=== PATIENT | male | born 1990 | race African-American/Black ===

== ENCOUNTER 2023-11-18 20:26 | Inpatient (IN) | payer MEDICAID ==
[~2023-11-18] VITALS: Ht 167.6 cm; Wt 121.0 kg
[2023-11-18] MEDS ORDERED: HALOPERIDOL 5 MG TABLET PO PRN (21:30)
[2023-11-18] MEDS ORDERED: ZOLPIDEM TARTRATE 10 MG TABLET PO PRN (21:30)
[2023-11-18 22:30] VITALS: BP 153/82; PULSE 89; RESP 18; TEMP 97.7; O2SAT 97
[2023-11-18] MEDS: PNEUMOCOCCAL VACCINE POLYVALENT 0.5 ML SYRINGE [PPSV23] IM. ONE (22:30)
[2023-11-19 08:37] VITALS: BP 149/80; PULSE 90; RESP 17; TEMP 98.3; O2SAT 99
[2023-11-19 08:48] LABS: BASOPHILS % (AUTO) 0.8 % (0.0-2.0); EOSINOPHILS % (AUTO) 2.7 % (1.0-6.0); HEMATOCRIT 40.9 % (41-53); HEMOGLOBIN 13.6 g/dL (13.5-17.5); LYMPHOCYTES # (AUTO) 2.1 K/uL (1.0-4.8); LYMPHOCYTES % (AUTO) 37.4 % (22.0-44.0); MEAN CORPUSCULAR HEMOGLOBIN 29.6 pg (26.0-34.0); MEAN CORPUSCULAR HGB CONC 33.2 G/dL (31.0-37.0); MEAN CORPUSCULAR VOLUME 89 fL (80-100); MONOCYTES # (AUTO) 0.4 K/uL (0.1-1.0); MONOCYTES % (AUTO) 7.4 % (2.0-9.0); NEUTROPHILS # (AUTO) 2.9 K/uL (1.8-7.7); NEUTROPHILS % (AUTO) 51.7 % (40.0-70.0); PLATELET COUNT (AUTO) 290 K/uL (150-450); RED BLOOD CELL COUNT(AUTO) 4.59 MIL/uL (4.50-5.90); RED CELL DISTRIBUTION WIDTH 14.7 % (11.5-14.5); WHITE BLOOD COUNT (AUTO) 5.5 K/uL (4.5-11.0)
[2023-11-19 09:03] LABS: HEMOGLOBIN A1C 5.8 % (3.8-5.6)
[2023-11-19 09:18] LABS: ALANINE AMINOTRANSFERASE 23 U/L (12-78); ALBUMIN 3.5 g/dL (3.4-5.0); ALKALINE PHOSPHATASE 109 U/L (46-116); ANION GAP 12 mmol/L (8-16); ASPARTATE AMINOTRANSFERASE 27 U/L (15-37); BILIRUBIN,TOTAL 0.7 mg/dL (0.1-1.0); CALCIUM, TOTAL 8.3 mg/dL (8.8-10.5); CARBON DIOXIDE 24 mmol/L (22-29); CHLORIDE 105 mmol/L (98-107); CHOL/HDL RATIO 3.2 (4.2-7.3); CHOLESTEROL 155 mg/dL (131-200); CREATININE 1.13 mg/dL (0.60-1.30); FREE T4 (FREE THYROXINE) 0.76 ng/dL (0.76-1.46); GLOMERULAR FILTR. RATE CALC > 60 mL/min (>60); GLUCOSE,RANDOM 96 mg/dL (70-110); HDL CHOLESTEROL 48 mg/dL (40-60); LDL CHOL (CALC.) 70 mg/dL (0-130); POTASSIUM 3.2 mmol/L (3.5-5.1); SODIUM SERUM 141 mmol/L (136-145); THYROID STIMULATING HORMONE 1.38 uIU/mL (0.36-3.74); TOTAL PROTEIN, SERUM 7.4 g/dL (6.4-8.2); TRIGLYCERIDES 187 mg/dL (15-150); UREA NITROGEN, BLOOD 12 mg/dL (7-18)
[2023-11-19] MEDS: TUBERCULIN, PURIFIED PROTEIN DERIVATIVE 5 TU/0.1 ML SYRINGE ID ONE (10:15)
[2023-11-19] MEDS ORDERED: HydrOXYzine PAMOATE 50 MG CAPSULE PO PRN ×2 (10:15→16:00)
[2023-11-19] MEDS ORDERED: GuaiFENesin/D-METHORPHAN [SUGAR-FREE] 200-20MG/10 ML SYRUP UDCUP PO PRN (10:15)
[2023-11-19] MEDS ORDERED: LOPERAMIDE HCL 2 MG CAPSULE PO PRN (10:15)
[2023-11-19] MEDS ORDERED: MAGNESIUM HYDROXIDE SUSPENSION 30 ML UDCUP PO PRN (10:15)
[2023-11-19] MEDS ORDERED: PROMETHAZINE HCL 25 MG TABLET PO PRN (10:15)
[2023-11-19] MEDS: POTASSIUM CHLORIDE 20 MEQ ER TABLET PO ONE (10:59)
[2023-11-19] MEDS: RisperiDONE 2 MG TABLET PO ONE (11:02)
[2023-11-19] MEDS ORDERED: [UNRECOGNIZED DRUG - OTHER] IM ONE (16:00)
[2023-11-19] MEDS ORDERED: ARIPIPRAZOLE IM ONE (16:00)
[2023-11-19] MEDS ORDERED: ChlorproMAZINE HCL 50 MG TABLET PO PRN (16:00)
[2023-11-19] MEDS: THIAMINE 100 MG TABLET PO SCH (16:24)
[2023-11-19] MEDS: LORazepam 2 MG TABLET PO PRN (18:24)
[2023-11-19] MEDS: MELATONIN 5 MG TABLET PO SCH (19:52)
[2023-11-19] MEDS: ARIPiprazole 15 MG TABLET PO SCH (19:53)
[2023-11-19] MEDS: QUEtiapine FUMARATE 100 MG TABLET PO SCH (19:54)
[2023-11-19 20:22] VITALS: BP 155/91; PULSE 115; RESP 16; TEMP 98.2; O2SAT 97
[2023-11-20 08:01] VITALS: BP 152/92; PULSE 100; RESP 18; TEMP 97.6; O2SAT 98
[2023-11-20 08:18] LABS: HEMOGLOBIN A1C 5.9 % (3.8-5.6)
[2023-11-20 08:38] LABS: ANION GAP 12 mmol/L (8-16); CALCIUM, TOTAL 8.6 mg/dL (8.8-10.5); CARBON DIOXIDE 26 mmol/L (22-29); CHLORIDE 104 mmol/L (98-107); CHOL/HDL RATIO 3.7 (4.2-7.3); CHOLESTEROL 176 mg/dL (131-200); CREATININE 1.18 mg/dL (0.60-1.30); FREE T4 (FREE THYROXINE) 0.74 ng/dL (0.76-1.46); GLOMERULAR FILTR. RATE CALC > 60 mL/min (>60); GLUCOSE,RANDOM 90 mg/dL (70-110); HDL CHOLESTEROL 47 mg/dL (40-60); LDL CHOL (CALC.) 82 mg/dL (0-130); POTASSIUM 3.3 mmol/L (3.5-5.1); SODIUM SERUM 142 mmol/L (136-145); THYROID STIMULATING HORMONE 1.09 uIU/mL (0.36-3.74); TRIGLYCERIDES 234 mg/dL (15-150); UREA NITROGEN, BLOOD 16 mg/dL (7-18)
[2023-11-20] MEDS: LOSARTAN POTASSIUM 50 MG TABLET PO SCH (08:41)
[2023-11-20] MEDS: AmLODIPine BESYLATE 10 MG TABLET PO SCH (08:41)
[2023-11-20] MEDS: NALTREXONE HCL 50 MG TABLET PO SCH (08:41)
[2023-11-20] MEDS: FOLIC ACID 1 MG TABLET PO SCH (08:41)
[2023-11-20] MEDS: HYDROCHLOROTHIAZIDE 25 MG TABLET PO SCH (08:42)
[2023-11-20] MEDS: FLUoxetine HCL 20 MG CAPSULE PO SCH (08:42)
[2023-11-20] MEDS: MULTIVITAMINS WITH MINERALS, THERAPEUTIC TABLET PO SCH (08:42)
[2023-11-20] MEDS ORDERED: OLANZapine 5 MG RAPDIS TABLET PO SCH (09:00)
[2023-11-20] MEDS: [UNRECOGNIZED DRUG - OTHER] IM ONE (10:24)
[2023-11-20] MEDS: ARIPIPRAZOLE IM ONE (10:24)
[2023-11-20 20:32] VITALS: BP 138/96; PULSE 97; RESP 20; TEMP 98.2; O2SAT 98
[2023-11-20] MEDS: POTASSIUM CHLORIDE 20 MEQ ER TABLET PO SCH (20:55)
[2023-11-20] MEDS: QUEtiapine FUMARATE 300 MG TABLET PO SCH (21:04)
[2023-11-20] MEDS ORDERED: PRAZ1 PO (21:33)
[2023-11-20] MEDS ORDERED: LOSA-382 PO (21:33)
[2023-11-20] MEDS ORDERED: METO50TA9 PO (21:33)
[2023-11-20] MEDS ORDERED: CLON0.1T2 PO (21:33)
[2023-11-20] MEDS ORDERED: AMLO10TA55 PO (21:33)
[2023-11-20] MEDS ORDERED: ARIP10TA8 PO (21:33)
[2023-11-20] MEDS ORDERED: TOPI100T37 PO (21:33)
[2023-11-20] MEDS ORDERED: ESZOPICLONE 3 MG TABLET PO PRN (22:15)
[2023-11-21 01:06] LABS: HEPATITIS A ANTIBODY IGM Negative (Negative); HEPATITIS B CORE IGM Negative (Negative); HEPATITIS C AB (EIA) Non Reactive (Non Reactive)
[2023-11-21 08:06] VITALS: BP 133/59; PULSE 78; RESP 17; TEMP 98.3; O2SAT 94
[2023-11-21 08:33] LABS: APPEARANCE,URINE HAZY (CLEAR); BILIRUBIN,URINE NEGATIVE (NEGATIVE); COLOR,URINE LIGHT YELLOW (YELLOW); GLUCOSE, URINE (UA) NEGATIVE (NEGATIVE); KETONES,URINE NEGATIVE (NEGATIVE); LEUKOCYTE ESTERASE ,URINE NEGATIVE (NEGATIVE); NITRATE,URINE NEGATIVE (NEGATIVE); OCCULT BLOOD,URINE NEGATIVE (NEGATIVE); PH,URINE 6.5 (5.0-8.0); PH,URINE DRUG SCREEN 6.5 (5.0-8.0); PROTEIN,URINE NEGATIVE (NEGATIVE); SPECIFIC GRAVITIY, URINE 1.017 (1.003-1.030); UROBILINOGEN,URINE <=1.0 mg/dL (<=1.0)
[2023-11-21 08:42] VITALS: BP 143/97
[2023-11-21] MEDS: HYDROCHLOROTHIAZIDE 25 MG TABLET PO SCH (08:47)
[2023-11-21] MEDS: CARVEDILOL 3.125 MG TABLET PO SCH (08:47)
[2023-11-21 08:49] LABS: ALCOHOL, URINE DRUG SCREEN NEGATIVE (NEGATIVE); AMPHET/METH SCREEN,URINE NEGATIVE (NEGATIVE); BARBITURATE SCREEN, URINE NEGATIVE (NEGATIVE); BENZODIAZEPINES SCREEN,URINE NEGATIVE (NEGATIVE); CANNABINOID SCREEN,URINE NEGATIVE (NEGATIVE); COCAINE SCREEN,URINE NEGATIVE (NEGATIVE); METHADONE SCREEN, URINE NEGATIVE (NEGATIVE); OPIATE SCREEN,URINE NEGATIVE (NEGATIVE); PHENCYCLIDINE SCREEN,URINE NEGATIVE (NEGATIVE)
[2023-11-21] MEDS: METOPROLOL SUCCINATE 50 MG ER TABLET PO SCH (08:49)
[2023-11-21 11:00] VITALS: BP 145/93
[2023-11-21 13:00] VITALS: BP 150/100
[2023-11-21] MEDS: GABAPENTIN 300 MG CAPSULE PO PRN (13:01)
[2023-11-21 15:30] VITALS: BP 130/90
[2023-11-21] MEDS: QUEtiapine FUMARATE 100 MG TABLET PO PRN (20:00)
[2023-11-21] MEDS: QUEtiapine FUMARATE 200 MG TABLET PO SCH (21:48)
[2023-11-21 22:53] VITALS: BP 113/74; PULSE 81; RESP 18; TEMP 98.1; O2SAT 95
[2023-11-22 08:17] VITALS: BP 139/94; PULSE 88; RESP 18; TEMP 97.4; O2SAT 98
[2023-11-22] MEDS: BuPROPion HCL XL 150 MG ER TABLET PO SCH (08:19)
[2023-11-22] MEDS: HydrALAZINE HCL 10 MG TABLET PO SCH (08:27)
[2023-11-22] MEDS: MAG HYDROX/ALUMINUM HYD/SIMETH ES 30 ML SUSPENSION UDCUP PO PRN (08:31)
[2023-11-22] MEDS: PANTOPRAZOLE SODIUM 40 MG DR TABLET PO SCH (09:21)
[2023-11-22 20:05] VITALS: BP 132/55; PULSE 82; RESP 18; TEMP 98.5; O2SAT 95
[2023-11-23 08:05] VITALS: BP 111/67; PULSE 77; RESP 18; TEMP 97.5; O2SAT 95
[2023-11-23] MEDS: BuPROPion HCL XL 150 MG ER TABLET PO SCH (09:07)
[2023-11-23 12:55] VITALS: BP 126/67; PULSE 80
[2023-11-23 16:13] VITALS: BP 140/73
[2023-11-23 21:02] VITALS: BP 138/74; PULSE 74; RESP 17; TEMP 97.6; O2SAT 97
[2023-11-24 08:23] VITALS: BP 132/78; PULSE 84; RESP 18; TEMP 97.8; O2SAT 98
[2023-11-24 12:30] VITALS: BP 140/98; PULSE 78; RESP 18; TEMP 97.8; O2SAT 96
[2023-11-24 16:23] VITALS: BP 144/92
[2023-11-24 21:33] VITALS: BP 132/76; PULSE 78; RESP 18; TEMP 97.9; O2SAT 96
[2023-11-25 08:13] VITALS: BP 147/97; PULSE 78; RESP 17; TEMP 97.2; O2SAT 97
[2023-11-25 10:35] VITALS: BP 149/95; PULSE 89; RESP 18
[2023-11-25] MEDS: ACETAMINOPHEN 325 MG TABLET PO PRN (10:39)
[2023-11-25 11:35] VITALS: RESP 17
[2023-11-25 12:45] VITALS: BP 160/99; PULSE 90; RESP 18; O2SAT 98
[2023-11-25] MEDS ORDERED: ESZOPICLONE 3 MG TABLET PO PRN (16:30)
[2023-11-25 18:00] VITALS: BP 141/100; PULSE 79; RESP 18; O2SAT 97
[2023-11-25] MEDS: ARIPiprazole 10 MG TABLET PO SCH (19:58)
[2023-11-25 20:32] VITALS: BP 142/96; PULSE 83; RESP 17; TEMP 97.8; O2SAT 98
[2023-11-26] MEDS: BuPROPion HCL XL 150 MG ER TABLET PO SCH (08:24)
[2023-11-26 08:32] VITALS: BP 130/80; PULSE 83; RESP 18; TEMP 97.5; O2SAT 95
[2023-11-26] MEDS: POTASSIUM CHLORIDE 20 MEQ ER TABLET PO ONE (10:08)
[2023-11-26] MEDS ORDERED: CloNIDine HCL 0.1 MG TABLET PO PRN (10:15)
[2023-11-26 12:20] VITALS: BP 141/84; PULSE 81; RESP 18
[2023-11-26] MEDS: QUEtiapine FUMARATE 300 MG TABLET PO SCH (19:52)
[2023-11-26] MEDS: ARIPiprazole 10 MG TABLET PO SCH (19:53)
[2023-11-26 20:59] VITALS: BP 136/88; PULSE 79; RESP 18; TEMP 97.7; O2SAT 99
[2023-11-27 08:18] LABS: ANION GAP 6 mmol/L (8-16); CALCIUM, TOTAL 8.6 mg/dL (8.8-10.5); CARBON DIOXIDE 31 mmol/L (22-29); CHLORIDE 103 mmol/L (98-107); CREATININE 1.28 mg/dL (0.60-1.30); GLOMERULAR FILTR. RATE CALC > 60 mL/min (>60); GLUCOSE,RANDOM 88 mg/dL (70-110); POTASSIUM 3.5 mmol/L (3.5-5.1); SODIUM SERUM 140 mmol/L (136-145); UREA NITROGEN, BLOOD 12 mg/dL (7-18)
[2023-11-27 08:38] VITALS: BP 155/92; PULSE 78; RESP 18; TEMP 97.6; O2SAT 95
[2023-11-27 12:44] VITALS: BP 143/91; RESP 18
[2023-11-27 16:34] VITALS: BP 139/95; RESP 18
[2023-11-27 20:29] VITALS: BP 121/72; PULSE 86; RESP 16; TEMP 98.4; O2SAT 97
[2023-11-28 08:09] VITALS: BP 154/95; PULSE 77; RESP 18; TEMP 97.7; O2SAT 96
[2023-11-28 13:01] VITALS: BP 150/90; RESP 18; O2SAT 96
[2023-11-28] MEDS: GABAPENTIN 400 MG CAPSULE PO PRN (17:24)
[2023-11-28 20:27] VITALS: BP 140/100; PULSE 80; RESP 21; TEMP 98; O2SAT 99
[2023-11-29 08:09] VITALS: BP 116/60; PULSE 82; RESP 18; TEMP 98.1; O2SAT 97
[2023-11-29 12:00] VITALS: BP 124/78
[2023-11-29 20:31] VITALS: BP 132/79; PULSE 84; RESP 16; TEMP 96.6; O2SAT 97
[2023-11-30 08:02] VITALS: BP 134/90; PULSE 95; RESP 18; TEMP 97.3; O2SAT 96
[2023-11-30 12:39] VITALS: BP 125/67
[2023-11-30 16:54] VITALS: BP 124/88; RESP 18; O2SAT 96
[2023-11-30 20:03] VITALS: BP 128/90; PULSE 89; RESP 18; TEMP 97.6; O2SAT 96
[2023-12-01 08:04] VITALS: BP 132/85; PULSE 92; RESP 17; TEMP 97.4; O2SAT 96
[2023-12-01] MEDS: ARIPiprazole 10 MG TABLET PO SCH (08:18)
[2023-12-01 13:05] VITALS: BP 152/90
[2023-12-01 16:45] VITALS: BP 150/90
[2023-12-01 20:39] VITALS: BP 150/90; PULSE 87; RESP 16; TEMP 97.1
[2023-12-02 08:07] VITALS: BP 144/95; PULSE 82; RESP 18; TEMP 97.7; O2SAT 93
[2023-12-02 16:45] VITALS: BP 136/89; PULSE 85; RESP 18
[2023-12-02 20:21] VITALS: TEMP 97.2; O2SAT 97
[2023-12-03 08:26] VITALS: BP 136/72; PULSE 85; RESP 18; TEMP 97.8; O2SAT 96
[2023-12-03] MEDS ORDERED: HYDR25TA2 PO (08:58)
[2023-12-03] MEDS ORDERED: HYDR10TA31 PO (08:58)
[2023-12-03] MEDS ORDERED: POTA-92 PO (08:59)
[2023-12-03] MEDS ORDERED: ARIP10TA38 PO (09:30)
[2023-12-03] MEDS ORDERED: QUET300T2 PO (09:31)
[2023-12-03] MEDS ORDERED: BUPR-514 PO (09:33)
[2023-12-03] MEDS ORDERED: MELA5TAB40 PO (09:34)
[2023-12-03] MEDS ORDERED: NALT50TA33 PO (09:34)
[2024-01-19] MEDS ORDERED: ARIPIPRAZOLE IM SCH (09:00)
[2024-01-19] MEDS ORDERED: [UNRECOGNIZED DRUG - OTHER] IM SCH (09:00)
== END 2023-12-03 13:38 | disposition home or self-care (01) | DRG 750 ==
LOC: B2S 22:02 → UNDODISIN 11-23 18:31
PROVIDERS: ADMIT Psychiatry & Neurology Psychiatry; ATTEND Psychiatry & Neurology Psychiatry
PROC: GZHZZZZ Group Psychotherapy (ICD-10-PCS; principal; 2023-11-19)
PROC: GZ58ZZZ Individual Psychotherapy, Cognitive-Behavioral (ICD-10-PCS; 2023-11-19)
DX: F25.0 Schizoaffective disorder, bipolar type (principal); R45.851 Suicidal ideations; Z68.43 Body mass index [BMI] 50.0-59.9, adult; Z91.148 Patient's other noncompliance with medication regimen for other reason; E66.9 Obesity, unspecified; E87.6 Hypokalemia; F17.200 Nicotine dependence, unspecified, uncomplicated; F41.9 Anxiety disorder, unspecified; G47.00 Insomnia, unspecified; I10 Essential (primary) hypertension; Z59.02 Unsheltered homelessness; Z88.1 Allergy status to other antibiotic agents
CPT/HCPCS: 80048; 80053; 80061; 80074; 80307; 81003; 83036; 84132; 84439; 84443; 85025; 86592; 87081